=== PATIENT | female | born 1935 | race Caucasian/White ===

== ENCOUNTER 2017-10-10 06:14 | Emergency (ER) | payer MEDICARE, BC ==
[2017-10-10 06:22] VITALS: BP 139/64
--- NOTE | 2017-10-10 06:46 | ERNOTE ---
Date of Service: 10/10/17 Time Seen by Provider: 10/10/17 06:40 Stated Complaint: SORE THROAT,COUGH,DIARRHEA Source: patient Exam Limitations: no limitations Immunizations: IMMUNIZATION HX Immunizations Up to Date Yes History of Influenza Vaccine Yes Hx Pneumococcal Vaccination No Allergies/Adverse Reactions: Allergies No Known Drug Allergies Allergy (Unknown, Verified 10/10/17 06:21) Home Medications: HOME MEDICATIONS ALPRAZolam [Xanax] 0.25 mg PO BID PRN 04/04/13 [Last Taken 04/04/13] Calcium Carbonate/Vitamin D3 [Calcium 600-Vit D3 200 Tablet] 1 each PO BID 04/04 [Last Taken 08/08/13] Hydrochlorothiazide [Hydrodiuril] 25 mg PO DAILY 04/04/13 [Last Taken 08/09/13 0500] Losartan Potassium [Cozaar] 100 mg PO DAILY 04/04/13 [Last Taken 08/09/13 05:00] Multivitamin [Multivitamins] 1 each PO DAILY 04/04/13 [Last Taken 08/08/13] Venlafaxine HCl 25 mg PO BID 04/04/13 [Last Taken 08/08/13] Potassium Chloride 10 meq PO DAILY 04/05/13 [Last Taken 08/09/13 0500] Dextran 70/Hypromellose [Artificial Tears Eye Drops] 1 drop OP DAILY PRN [Last Taken 08/08/13] Gluc Sibley/Chondro Sibley A/Vit C/Mn [Glucosamine Chondroitin Tab] 1 each PO QPM [Last Taken 08/08/13] Ferrous Sulfate 325 mg PO BIDWM #60 tablet 08/12/13 [Last Taken Unknown] Furosemide [Lasix] 40 mg PO DAILY 08/10/14 [Last Taken Unknown] Potassium Chloride [K-Dur] 20 meq PO DAILY 08/10/14 [Last Taken Unknown] Ciprofloxacin HCl [Cipro] 500 mg PO BID 10 Days tablet 10/26/16 [Last Taken Unknown] guaiFENesin/DEXTROMETHORPHAN [Robitussin Cough-Chest Dm Liq] 118 ml PO BID #120 liquid 10/26/16 [Last Taken Unknown] Azithromycin 250 mg PO DAILY #6 tablet 10/10/17 [Last Taken Unknown] Ondansetron [Zofran Odt] 4 mg PO Q6H PRN #20 tab 10/10/17 [Last Taken Unknown] - History of Present Ilness Narrative: This patient was recently seen at the clinic for sore throat ear aches and a cough she was diagnosed with an upper respiratory infection and placed on Cipro 500 mg twice a day. Patient has only taken 3 Cipro 500 mg. Patient states that her sore throat is better her ears still hurts a bit and she complains of a new symptom of diarrhea which she attributes to the Cipro. She states she is unable to continue the Cipro due to diarrhea. Diarrhea is loose not watery and multiple bouts. Patient also states when she takes the Cipro she feels nauseated but she has not vomited. She denies any fevers or chills. Does have a raspy cough worse when taking a deep breath. Review of Systems - Review of Systems Constitutional: Present: no symptoms reported EYE: Present: other - 6 and states that she is on antibiotic ointment for her eyes and she states that she gets occasional greenish discharge in the morning ENT: Present: ear pain Respiratory: Present: See HPI Cardiology: Present: no symptoms reported Gastrointestinal/Abdominal: Present: nausea. Absent: vomiting Genitourinary: Present: no symptoms reported, hematuria Skin: Present: no symptoms reported - Patient's Past Medical History Patient History - Medical: Anxiety, Arthritis, Depression, GERD Patient History - Cardiac/Respiratory: Hypertension, CPAP/BiPAP Home Use, Sleep Apnea Patient History - Cancer: Melanoma Patient History - Surgical Procedures: Appendectomy, Cholecystectomy, T & A Patient History - Other: None - Social History Living Situations: home Abuse History: No History of abuse Psych History: Hx of Anxiety, Hx of Depression - Immunizations Immunizations Up to Date: Yes Hx Pneumococcal Vaccination: No History of Influenza Vaccine: Yes Physical Exam - Physical Exam General Appearance: Present: wd/wn, alert, no apparent distress Head Exam: Present: normal inspection, no evidence of injury Eye Exam: Normal inspection: bilateral, PERRL: bilateral, EOMI: bilateral Ears, Nose, Throat: Present: normal ENT inspection, normal pharynx Neck: Present: normal inspection, nontender, supple Respiratory: Present: no respiratory distress, normal breath sounds, no accessory muscle use, chest nontender, other - when patient takes a deep breath she does have a cough and I do hear a very slight end expiratory wheeze at the end of each cough. She is not in any respiratory distress. Respirations are even and unlabored. Cardiovascular/Chest: Present: regular rate, rhythm, no murmur, normal peripheral pulses Gastrointestinal/Abdominal: Present: normal bowel sounds, nondistended, soft Extremity Exam: Present: normal inspection, normal range of motion Neurological Exam: Present: alert, oriented, normal mood/affect, no motor/ sensory deficits ED Progress - Vital Signs Patient's Vital Signs:: I have reviewed the patient's vital signs. Vital Signs: Vital Signs 10/10/17 06:18 Temperature 36.1 C L Pulse Rate 102 H Respiratory 20 Rate Blood Pressure 139/64 O2 Sat by Pulse 96 Oximetry - Progress/Reassessment Chief Complaint: Upper Respiratory Symptoms Plan - Plan Plan: This patient based on my examination has bronchitis. Patient also is having a medication reaction to Cipro and has had diarrhea. At this time we will stop the Cipro and start patient on Z-Josep. Her sore throat subsequently is getting better and her ear exam is completely normal. Departure Clinical Impression: Medication reaction Qualifiers: Encounter type: initial encounter Qualified Code(s): T88.7XXA - Unspecified adverse effect of drug or medicament, initial encounter Diarrhea Qualifiers: Diarrhea type: unspecified type Qualified Code(s): R19.7 - Diarrhea, unspecified - Departure Disposition: Home self-care Condition: Good Instructions: Diarrhea, Adult, [id number] Referrals: Luciano Gilman MD [Primary Care Provider] - Prescriptions: Azithromycin 250 mg PO DAILY #6 tablet Ondansetron [Zofran Odt] 4 mg PO Q6H PRN #20 tab PRN Reason: Nausea
== END 2017-10-10 06:52 | disposition home or self-care (01) ==
LOC: ER 06:14
DX: R19.7 Diarrhea, unspecified (principal); T88.7XXA Unspecified adverse effect of drug or medicament, initial encounter; F41.9 Anxiety disorder, unspecified; F32.9 Major depressive disorder, single episode, unspecified; I10 Essential (primary) hypertension; Z85.820 Personal history of malignant melanoma of skin

== ENCOUNTER 2020-10-27 06:37 | Observation (INO) ==
--- NOTE | 2020-10-27 07:13 | ERNOTE ---
<Jl Wolf - Last Filed: 10/27/20 08:02> Back Pain ER HPI Time Seen by Provider: 10/27/20 07:05 Source: patient Exam Limitations: no limitations Immunizations: IMMUNIZATION HX Immunizations Up to Date Yes History of Influenza Vaccine Yes Hx Pneumococcal Vaccination Yes Allergies/Adverse Reactions: Allergies No Known Drug Allergies Allergy (Unknown, Verified 05/17/20 09:34) Home Medications: HOME MEDICATIONS ALPRAZolam [Xanax] 0.25 mg PO BID PRN 04/04/13 [Last Taken 04/04/13] Calcium Carbonate/Vitamin D3 [Calcium 600-Vit D3 200 Tablet] 1 ea PO BID 04/04/13 [Last Taken 08/08/13] Multivitamin [Multivitamins] 1 ea PO DAILY 04/04/13 [Last Taken 08/08/13] Dextran 70/Hypromellose [Artificial Tears Eye Drops] 1 drp OP DAILY PRN 08/08/13 [Last Taken 08/08/13] hydrochlorothiazide 25 mg tablet 25 mg PO DAILY #90 tab 08/20/20 [Last Taken Unknown] irbesartan 150 mg tablet 150 mg PO DAILY #90 tab 08/20/20 [Last Taken Unknown] venlafaxine 50 mg tablet 50 mg PO DAILY #90 tab 08/20/20 [Last Taken Unknown] potassium chloride 10 mEq tablet,extended release 20 meq PO DAILY #180 tab 10/22/20 [Last Taken Unknown] Narrative: Patient presents with sharp right-sided lower chest pain upon breathing. She denies any trauma or injury. She states it feels like it did previously when she had polymyalgia rheumatica. Timing: Reports: constant Quality/Severity: Reports: moderate, sharpness Location of pain: Reports: mid back Activities at Onset: Reports: none Recent Injury?: Reports: no Modifying Factors - (Worsens): Reports: cough/deep breaths Associated Symptoms: Denies: fever/chills, nausea/vomiting Review of Systems - Review of Systems Constitutional: Absent: recent illness, fever, chills, fatigue ENT: Present: nasal drainage - that is usual for her.. Absent: nose congestion Respiratory: Absent: shortness of breath, cough Cardiology: Present: See HPI. Absent: palpitations Gastrointestinal/Abdominal: Absent: nausea, vomiting Genitourinary: Absent: frequency, dysuria Musculoskeletal: Present: muscle pain Skin: Absent: rash Neurological: Absent: headache, dizziness/light-headedness Endocrine: Absent: excessive sweating Medical History (Last Reviewed 10/27/20 @ 07:11 by Jl Wolf DO) Low back pain (Acute) acute on chronic Neck pain (Acute) Anxiety and depression (Chronic) Medicare annual wellness visit, subsequent (Acute) Hypertension (Chronic) Hand pain (Chronic) Onset Date: ~03/2015 left 5th metacarpal Elbow pain (Chronic) Onset Date: Unknown right DJD (degenerative joint disease) of knee (Chronic) Onset Date: ~2011 2011 Right; 2012 Left Depression (Chronic) Onset Date: Unknown Arthritis (Chronic) Onset Date: ~2005 Simple laceration of face (Acute) Bronchitis (Acute) Medication reaction (Acute) Diarrhea (Acute) Pneumonia Onset Date: ~12/2009 Right shoulder pain Onset Date: Unknown Wrist injury Onset Date: ~01/21/16 Hypertension Onset Date: Unknown Mitral valve prolapse Onset Date: Unknown Obstructive sleep apnea Onset Date: Unknown Plantar warts Onset Date: ~09/20/15 Polymyalgia Onset Date: ~2007 Surgical History: Surgical History (Last Reviewed 10/27/20 @ 07:12 by Jl Wolf DO) Total knee replacement status (Chronic) AV fistula Onset Date: ~2003 Dural AV Fistula [facility] Cataract Onset Date: ~04/04/[address] Carpenter H/O colonoscopy Onset Date: ~1998 Normal H/O steroid therapy Onset Date: Unknown injection History of appendectomy Onset Date: ~1968 History of arthroplasty Onset Date: ~2011 Right knee History of hysterectomy Onset Date: ~1968 uncontrolled bleeding. Ovaries left History of knee replacement Onset Date: ~08/09/13 Left Knee; Dr. Clay History of knee replacement Onset Date: ~04/05/13 Right; Dr. 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 Brady 05/15 Family History: Family History (Last Reviewed 10/27/20 @ 07:12 by Jl Wolf DO) Father , age 79 Cancer lung, prostate Mother , age 89 Thoracic aneurysm, ruptured Social History: (Last Reviewed 10/27/20 @ 07:12 by Jl Wolf DO) Social History: adopted: No Marital status: / lives independently: Yes household members: children current occupational status: retired Highest level of school completed/degree received: high school graduate Service: No Tobacco: Smoking Status: Never smoker Alcohol: alcohol intake: current alcohol intake frequency: holiday/special occasion Substance Use: substance use type: does not use Dietary Habits: caffeine: Yes Type: coffee Physical Exam - Physical Exam General Appearance: Present: wd/wn, alert, no apparent distress Head Exam: Present: normal inspection, no evidence of injury Neck: Present: normal inspection, nontender Respiratory: Present: no respiratory distress, no accessory muscle use, chest nontender Back Exam: Present: normal inspection, normal range of motion, no CVA tenderness, no vertebral tenderness Extremity Exam: Present: normal inspection, normal range of motion, no edema Neurological Exam: Present: alert, oriented, normal mood/affect, no motor/sensory deficits Skin Exam: Present: normal color, warm/dry Lymphatic Exam: Present: no adenopathy Progress - Results and Orders Patient's Lab Results:: I have reviewed the patient's lab results. Results and Orders: Laboratory Tests 10/27/20 10/27/20 07:21 07:21 WBC 10.0 Hgb 9.4 L Hct 31.2 L Plt Count 225 C-Reactive Prot, Quant 10.1 H - Vital Signs Patient's Vital Signs:: I have reviewed the patient's vital signs. Vital Signs: Vital Signs 10/27/20 06:57 Temperature 36.6 C Pulse Rate 79 Respiratory Rate 15 Blood Pressure 165/80 H O2 Sat by Pulse Oximetry 93 - X-Ray X-Ray #1 X-Ray: chest Interpretation: Interp. by me X-ray Comments: Right pleural effusion. No infiltrate no pneumothorax. - Progress/Reassessment Chief Complaint: Back Pain Progress Note-Subjective: 10/27/20 08:08 review of CXR shows a significant right pleural effusion. Will order, Ti, BNP and D-dimer and hand the case over to Dr. Farrell. - Transfer of Care Physician Sign Out: Jl Wolf Receiving Physician: Yvon Farrell Pending Results: Labs Expected Disposition: Discharge Departure Clinical Impression: Pleural effusion, Pulmonary embolism and infarction - Departure Disposition: Still a patient Condition: Stable Referrals: Libarnes,Roseller, MD [Primary Care Provider] - <Yvon Farrell - Last Filed: 10/27/20 11:07> Back Pain ER HPI Date of Service: 10/27/20 Immunizations: IMMUNIZATION HX Immunizations Up to Date Yes History of Influenza Vaccine Yes Hx Pneumococcal Vaccination Yes Narrative: Patient was checked out to me at shift change. She said that she began having some right lower back pain yesterday about 4 AM. The pain has gotten worse. The pain is worse with a deep breath. She is not short of breath. She has not had a fever. She denies injury. She took Tylenol at 3:00 this morning with minimal relief. The pain is sharp. She denies any GI symptoms. Medical History (Last Reviewed 10/27/20 @ 07:11 by Jl Wolf DO) Low back pain (Acute) acute on chronic Neck pain (Acute) Anxiety and depression (Chronic) Medicare annual wellness visit, subsequent (Acute) Hypertension (Chronic) Hand pain (Chronic) Onset Date: ~03/2015 left 5th metacarpal Elbow pain (Chronic) Onset Date: Unknown right DJD (degenerative joint disease) of knee (Chronic) Onset Date: ~2011 2011 Right; 2012 Left Depression (Chronic) Onset Date: Unknown Arthritis (Chronic) Onset Date: ~2005 Simple laceration of face (Acute) Bronchitis (Acute) Medication reaction (Acute) Diarrhea (Acute) Pneumonia Onset Date: ~12/2009 Right shoulder pain Onset Date: Unknown Wrist injury Onset Date: ~01/21/16 Hypertension Onset Date: Unknown Mitral valve prolapse Onset Date: Unknown Obstructive sleep apnea Onset Date: Unknown Plantar warts Onset Date: ~09/20/15 Polymyalgia Onset Date: ~2007 Surgical History: Surgical History (Last Reviewed 10/27/20 @ 07:12 by Jl Wolf DO) Total knee replacement status (Chronic) AV fistula Onset Date: ~2003 Dural AV Fistula [facility] Cataract Onset Date: ~04/04/[address] Carpenter H/O colonoscopy Onset Date: ~1998 Normal H/O steroid therapy Onset Date: Unknown injection History of appendectomy Onset Date: ~1968 History of arthroplasty Onset Date: ~2011 Right knee History of hysterectomy Onset Date: ~1968 uncontrolled bleeding. Ovaries left History of knee replacement Onset Date: ~08/09/13 Left Knee; Dr. Clay History of knee replacement Onset Date: ~04/05/13 Right; Dr. 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 Brady 05/15 Family History: Family History (Last Reviewed 10/27/20 @ 07:12 by Jl Wolf DO) Father , age 79 Cancer lung, prostate Mother , age 89 Thoracic aneurysm, ruptured Social History: (Last Reviewed 10/27/20 @ 07:12 by Jl Wolf DO) Social History: adopted: No Marital status: / lives independently: Yes household members: children current occupational status: retired Highest level of school completed/degree received: high school graduate Service: No Tobacco: Smoking Status: Never smoker Alcohol: alcohol intake: current alcohol intake frequency: holiday/special occasion Substance Use: substance use type: does not use Dietary Habits: caffeine: Yes Type: coffee Physical Exam - Physical Exam Narrative: General: Awake and alert. She appears to be uncomfortable. Head: Normal appearing ENT: Normal externally Neck: Supple Heart: Regular rate and rhythm without murmur Lungs: Clear with equal breath sounds. She has pain with breathing. The pain is not reproduced with compression of the chest. Abdomen: No distention. No tenderness to palpation Neuro: Nonfocal exam. Psych: Appropriate Progress - Date and Time Seen: Date and Time: 10/27/20 11:05 I spoke with the patient about staying in the hospital. She feels that would be best. Spoke with Dr. Reynolds who agrees to admit the patient for observation. - Results and Orders Results and Orders: Laboratory Tests 10/27/20 10/27/20 10/27/20 07:21 07:21 07:21 WBC 10.0 RBC 3.35 L Hgb 9.4 L Hct 31.2 L MCV 93.1 MCH 28.1 MCHC 30.1 L RDW 14.9 H Plt Count 225 MPV 9.6 Immature Gran % (Auto) 0.30 Immature Gran # (Auto) 0.03 Neutrophils % 71.3 Lymphocytes % 18.6 L Monocytes % 8.5 Eosinophils % 0.9 Basophils % 0.4 Nucleated RBC % 0.0 Neutrophils # 7.1 H Lymphocytes # 1.86 Monocytes # 0.9 Eosinophils # 0.1 Absolute Basophils 0.0 ESR 77 H D-Dimer Sodium Plasma Sodium Potassium Chloride Carbon Dioxide Anion Gap BUN Creatinine Est GFR (Non-Af Amer) BUN/Creatinine Ratio Random Glucose Calcium Troponin I C-Reactive Prot, Quant 10.1 H B-Natriuretic Peptide 10/27/20 10/27/20 10/27/20 07:21 07:21 07:21 WBC RBC Hgb Hct MCV MCH MCHC RDW Plt Count MPV Immature Gran % (Auto) Immature Gran # (Auto) Neutrophils % Lymphocytes % Monocytes % Eosinophils % Basophils % Nucleated RBC % Neutrophils # Lymphocytes # Monocytes # Eosinophils # Absolute Basophils ESR D-Dimer 1.32 H Sodium 136 Plasma Sodium 136 Potassium 3.4 Chloride 100 Carbon Dioxide 27.0 Anion Gap 12.4 BUN 20 Creatinine 1.17 Est GFR (Non-Af Amer) 47 L D BUN/Creatinine Ratio 17.1 Random Glucose 105 Calcium 9.3 Troponin I Less than 0.017 C-Reactive Prot, Quant B-Natriuretic Peptide 277 - Vital Signs Vital Signs: Vital Signs 10/27/20 06:57 10/27/20 08:43 10/27/20 09:00 Temperature 36.6 C Pulse Rate 79 71 80 Respiratory Rate 15 14 15 Blood Pressure 165/80 H 149/68 144/59 O2 Sat by Pulse Oximetry 93 100 99 10/27/20 09:30 Temperature Pulse Rate 74 Respiratory Rate 14 Blood Pressure 126/64 O2 Sat by Pulse Oximetry 99 - CT/Ultrasound CT/Ultrasound Narrative: X-RAY REPORT ~[id number] CT/CTA Chest~ Exam Date: 10/27/2020 10:01 Ordering Physician: Yvon Farrell MD Indication: Chest pain. Elevated d-dimer. Technique: Multiple thin-section contrast-enhanced axial CT images of the chest were obtained after rapid infusion of intravenous contrast material, according to pulmonary angiography protocol. Coronal and axial maximal intensity projection (MIP) images were also submitted for interpretation. Individualized dose optimization technique was used for the performed procedure including automated exposure control, adjustment of the mA and/or kV according to patient size and/or the iterative reconstruction technique. Comparison: No prior CT scans. Findings: There is adequate opacification of the pulmonary arterial system. There is an intraluminal filling defect within a segmental branch of the anterior lateral basal segment of the right lower lobe. The segmental emboli extending into the subsegmental branches. There is a peripheral wedge-shaped area of groundglass opacity in the lung supplied by this arterial branch suggestive of subtle parenchymal infarction. Additional tiny subsegmental intraluminal filling defect seen within a peripheral branch of the anterior aspect of the right middle lobe. The aorta shows diffuse atherosclerosis but is normal caliber and course without aneurysmal dilation or evidence for dissection. Mild dependent atelectasis in the right lower lobe No additional consolidation, pleural effusion or pneumothorax. No mediastinal or hilar lymphadenopathy. The osseous structures demonstrate degenerative change of the spine and shoulders. Limited evaluation the upper abdomen demonstrates potential diffuse nodular contour to the liver with a small liver suggestive of cirrhosis. No obvious hepatic masses in the visualized parenchyma. Adrenal glands are normal. IMPRESSION: 1. ACUTE PULMONARY EMBOLISM IN A SEGMENTAL AND SUBSEGMENTAL BRANCHES INVOLVING THE ANTEROLATERAL ASPECT OF THE RIGHT LOWER LOBE. 2. ASSOCIATED PERIPHERAL WEDGE-SHAPED GROUNDGLASS OPACITY IN THE RIGHT LUNG SUPPLIED BY THIS ARTERY SUGGESTIVE OF SUBTLE PULMONARY INFARCTION. 3. ADDITIONAL SMALLER PERIPHERAL SUBSEGMENTAL PULMONARY EMBOLI IN THE RIGHT MIDDLE LOBE. 4. ADDITIONAL CHRONIC FINDINGS ABOVE. THESE CRITICAL RESULTS WERE CALLED TO THE ORDERING ER PHYSICIAN DR. FARRELL ON OCTOBER 27, 2020 AT 10:35 AM. Electronically signed by Alfredo Flores D.O..
[2020-10-27 07:26] LABS: Hematocrit 31.2 % (37.0-47.0); Hemoglobin 9.4 gm/dL (12.5-16.0); Mean Cell Volume 93.1 fl (78-100); Mean Corpuscular Hemoglobin 28.1 pg (27-31); Mean Corpuscular Hgb Conc 30.1 g/dl (32-36); Mean Platelet Volume 9.6 fl (8-12.5); Neutrophil # 7.1 K/mm3 (1.3-6.0); Neutrophil % 71.3 % (42-75.0); Platelet Count 225 K/mm3 (150-450); Red Blood Count 3.35 M/mm3 (4.2-5.4); Red Cell Distribution Width 14.9 % (11.5-14.0)
[2020-10-27 08:24] LABS: Troponin I Less than 0.017 ng/mL (0.00-0.10)
[2020-10-27 08:27] LABS: BNP * 277 pg/mL (5-550)
[2020-10-27] MEDS ORDERED: KETOROLAC TROMETHAMINE 30 MG/ML VIAL IM ONE (08:33)
[2020-10-27 09:01] LABS: Anion Gap 12.4 mmol/L (6.8-13.8); BUN/Creatinine Ratio 17.1 (9.0-21.6); Calcium * 9.3 mg/dL (7.9-10.9); Estimated Creat Clear 33.6; Potassium 3.4 mmol/L (3.4-4.6)
[2020-10-27] MEDS ORDERED: NORMAL SALINE 1,000 ML IV ONE (09:08)
[2020-10-27] MEDS ORDERED: ACETAMINOPHEN 1,000 MG/100 ML BTL IV ONE (09:30)
[2020-10-27] MEDS ORDERED: ENOXAPARIN SODIUM 100 MG/ML SYRG SC SCH (11:00)
[2020-10-27] MEDS ORDERED: ALPRAZolam 0.25 MG TABLET PO PRN (17:22)
[2020-10-27] MEDS ORDERED: GLYCERIN/PROPYLENE GLYCOL 150 DROP BTL EACHEYE PRN (17:26)
[2020-10-27] MEDS ORDERED: LOSARTAN POTASSIUM 50 MG TABLET ONE (17:49)
[2020-10-27] MEDS: HYDROCHLOROTHIAZIDE 25 MG TABLET PO SCH (17:50)
[2020-10-27] MEDS: LOSARTAN POTASSIUM 50 MG TABLET PO SCH (17:51)
--- NOTE | 2020-10-27 17:58 | HP ---
Chief Complaint - Chief Complaint Date of Service: 10/27/20 Time of Service: 17:49 Chief Complaint: Back pain/Chest Pain History of Present Illness: Salome is an 85 yo female that presented to the [facility] ER with acute chest pain and mid back pain with shortness of breath. She had an elevated d-dimer, which led to a chest CTA. This showed pulmonary embolism. Vitals were overall stable and there was no evidence of hypoxia. COVID was negative. She does not have a history of VTE. She does report family members with stroke and DVT. She denies COVID infection, tobacco history, or change in activity. Medical History (Last Reviewed 10/27/20 @ 13:52 by Tea Boyd RN) Low back pain (Acute) acute on chronic Neck pain (Acute) Anxiety and depression (Chronic) Medicare annual wellness visit, subsequent (Acute) Hypertension (Chronic) Hand pain (Chronic) Onset Date: ~03/2015 left 5th metacarpal Elbow pain (Chronic) Onset Date: Unknown right DJD (degenerative joint disease) of knee (Chronic) Onset Date: ~2011 2011 Right; 2012 Left Depression (Chronic) Onset Date: Unknown Arthritis (Chronic) Onset Date: ~2005 Simple laceration of face (Acute) Bronchitis (Acute) Medication reaction (Acute) Diarrhea (Acute) Pneumonia Onset Date: ~12/2009 Right shoulder pain Onset Date: Unknown Wrist injury Onset Date: ~01/21/16 Hypertension Onset Date: Unknown Mitral valve prolapse Onset Date: Unknown Obstructive sleep apnea Onset Date: Unknown Plantar warts Onset Date: ~09/20/15 Polymyalgia Onset Date: ~2007 Surgical History: Surgical History (Last Reviewed 10/27/20 @ 13:53 by Tea Boyd RN) Total knee replacement status (Chronic) AV fistula Onset Date: ~[address] Fist[address] [facility] Cataract Onset Date: ~04/04/[address] Carpenter H/O colonoscopy Onset Date: ~1998 Normal H/O steroid therapy Onset Date: Unknown injection History of appendectomy Onset Date: ~1968 History of arthroplasty Onset Date: ~2011 Right knee History of hysterectomy Onset Date: ~1968 uncontrolled bleeding. Ovaries left History of knee replacement Onset Date: ~08/09/13 Left Knee; Dr. Clay History of knee replacement Onset Date: ~04/05/13 Right; Dr. 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 Brady 05/15 Family History: Family History (Last Reviewed 10/27/20 @ 07:12 by Jl Wolf DO) Father , age 79 Cancer lung, prostate Mother , age 89 Thoracic aneurysm, ruptured Social History: (Last Reviewed 10/27/20 @ 07:12 by Jl Wolf DO) Social History: adopted: No Marital status: / lives independently: Yes household members: children current occupational status: retired Highest level of school completed/degree received: high school graduate Service: No Tobacco: Smoking Status: Never smoker Alcohol: alcohol intake: current alcohol intake frequency: holiday/special occasion Substance Use: substance use type: does not use Dietary Habits: caffeine: Yes Type: coffee Review Of Systems (GEN) - Review of Systems Generalized/Overall Review: Absent: Weakness, Chills, Fever EENTM: Present: No Symptoms Reported Respiratory: Present: Shortness of Breath. Absent: Cough Cardiac: Present: Chest Pain, Edema. Absent: Palpitations, Syncope Abdominal: Absent: Nausea, Vomiting Genitourinary: Absent: Burning, Frequency Musculoskeletal: Present: Back Pain. Absent: Joint Pain Neurological: Present: No Symptoms Reported Skin: Present: No Symptoms Reported Immunizations: IMMUNIZATION HX Immunizations Up to Date Yes History of Influenza Vaccine Yes Hx Pneumococcal Vaccination Yes Allergies/Adverse Reactions: Allergies Allergy/AdvReac Type Severity Reaction Status Date / Time No Known Drug Allergies Allergy Unknown Verified 05/17/20 09:34 Home Medications: HOME MEDICATIONS ALPRAZolam [Xanax] 0.25 mg PO BID PRN 04/04/13 [Last Taken 04/04/13] Calcium Carbonate/Vitamin D3 [Calcium 600-Vit D3 200 Tablet] 1 ea PO BID 04/04/13 [Last Taken 08/08/13] Multivitamin [Multivitamins] 1 ea PO DAILY 04/04/13 [Last Taken 08/08/13] Dextran 70/Hypromellose [Artificial Tears Eye Drops] 1 drp OP DAILY PRN 08/08/13 [Last Taken 08/08/13] hydrochlorothiazide 25 mg tablet 25 mg PO DAILY #90 tab 08/20/20 [Last Taken Unknown] irbesartan 150 mg tablet 150 mg PO DAILY #90 tab 08/20/20 [Last Taken Unknown] venlafaxine 50 mg tablet 50 mg PO DAILY #90 tab 08/20/20 [Last Taken Unknown] potassium chloride 10 mEq tablet,extended release 20 meq PO DAILY #180 tab 10/22/20 [Last Taken Unknown] Exam - Exam Vital Signs: Vital Signs - Last Taken Temp 36.6 C 10/27/20 13:46 Pulse 98 10/27/20 14:45 Resp 14 10/27/20 13:46 BP 163/90 H 10/27/20 13:46 Pulse Ox 98 10/27/20 13:46 Constitutional: Present: Alert, Oriented x3, Cooperative ENT Exam: Present: hearing grossly normal Eye Exam: bilateral eye: normal inspection Respiratory: Present: lungs clear, normal breath sounds, no respiratory distress Cardiovascular/Chest: Present: regular rate, rhythm, no murmur Peripheral Pulses: radial (R): 2+, radial (L): 2+ Abdomen: Present: Normal bowel sounds, soft, nontender, nondistended Extremity: Present: lower extremity edema - 2+ Skin Exam: Present: normal color, warm/dry, no cyanosis Appearance: Present: appropriate appearance, appropriate insight Eye contact: Present: cooperative, good eye contact, normal speech Thoughts: Present: normal thought pattern, no apparent hallucination Diagnostic Studies: Abnormal Lab Results 10/27/20 10/27/20 10/27/20 Range/Units 07:21 07:21 07:21 RBC 3.35 L (4.2-5.4) M/mm3 Hgb 9.4 L (12.5-16.0) gm/dL Hct 31.2 L (37.0-47.0) % MCHC 30.1 L (32-36) g/dl RDW 14.9 H (11.5-14.0) % Lymphocytes % 18.6 L (20-51) % Neutrophils # 7.1 H (1.3-6.0) K/mm3 ESR 77 H (0-15) mm/hr D-Dimer (0.19-0.49) ug/mL Est GFR (Non-Af Amer) (60-130) mL/min C-Reactive Prot, Quant 10.1 H (0.0-0.9) mg/dL 10/27/20 10/27/20 Range/Units 07: 07:21 RBC (4.2-5.4) M/mm3 Hgb (12.5-16.0) gm/dL Hct (37.0-47.0) % MCHC (32-36) g/dl RDW (11.5-14.0) % Lymphocytes % (20-51) % Neutrophils # (1.3-6.0) K/mm3 ESR (0-15) mm/hr D-Dimer 1.32 H (0.19-0.49) ug/mL Est GFR (Non-Af Amer) 47 L D (60-130) mL/min C-Reactive Prot, Quant (0.0-0.9) mg/dL Laboratory Results WBC 10.0 K/mm3 (4.0-10.5) 10/27/20 07:21 RBC 3.35 M/mm3 (4.2-5.4) L 10/27/20 07:21 Hgb 9.4 gm/dL (12.5-16.0) L 10/27/20 07:21 Hct 31.2 % (37.0-47.0) L 10/27/20 07:21 MCV 93.1 fl (78-100) 10/27/20 07:21 MCH 28.1 pg (27-31) 10/27/20 07:21 MCHC 30.1 g/dl (32-36) L 10/27/20 07:21 RDW 14.9 % (11.5-14.0) H 10/27/20 07:21 Plt Count 225 K/mm3 (150-450) 10/27/20 07:21 MPV 9.6 fl (8-12.5) 10/27/20 07:21 Immature Gran % (Auto) 0.30 % (0.001-0.429) 10/27/20 07:21 Immature Gran # (Auto) 0.03 K/mm3 (0.000-0.0310) 10/27/20 07:21 Neutrophils % 71.3 % (42-75.0) 10/27/20 07:21 Lymphocytes % 18.6 % (20-51) L 10/27/20 07:21 Monocytes % 8.5 % (0.0-9) 10/27/20 07:21 Eosinophils % 0.9 % (0.0-3.0) 10/27/20 07:21 Basophils % 0.4 % (0.0-1.0) 10/27/20 07:21 Nucleated RBC % 0.0 k/mm3 (0-1) 10/27/20 07:21 Neutrophils # 7.1 K/mm3 (1.3-6.0) H 10/27/20 07:21 Lymphocytes # 1.86 k/mm3 (1.5-3.5) 10/27/20 07:21 Monocytes # 0.9 k/mm3 (0.0-1.0) 10/27/20 07:21 Eosinophils # 0.1 k/mm3 (0.0-0.7) 10/27/20 07:21 Absolute Basophils 0.0 k/mm3 (0.0-0.1) 10/27/20 07:21 ESR 77 mm/hr (0-15) H 10/27/20 07:21 D-Dimer 1.32 ug/mL (0.19-0.49) H 10/27/20 07:21 Sodium 136 mmol/L (132-142) 10/27/20 07:21 Plasma Sodium 136 mmol/L (130-142) 10/27/20 07:21 Potassium 3.4 mmol/L (3.4-4.6) 10/27/20 07:21 Chloride 100 mmol/L (97-106) 10/27/20 07:21 Carbon Dioxide 27.0 mmol/L (24-32.6) 10/27/20 07:21 Anion Gap 12.4 mmol/L (6.8-13.8) 10/27/20 07:21 BUN 20 mg/dL (3-23) 10/27/20 07:21 Creatinine 1.17 mg/dL (0.4-1.4) 10/27/20 07:21 Est GFR (Non-Af Amer) 47 mL/min (60-130) L D 10/27/20 07:21 BUN/Creatinine Ratio 17.1 (9.0-21.6) 10/27/20 07:21 Random Glucose 105 mg/dL (70-110) 10/27/20 07:21 Calcium 9.3 mg/dL (7.9-10.9) 10/27/20 07:21 Troponin I Less than 0.017 ng/mL (0.00-0.10) 10/27/20 07:21 C-Reactive Prot, Quant 10.1 mg/dL (0.0-0.9) H 10/27/20 07:21 B-Natriuretic Peptide 277 pg/mL (5-550) 10/27/20 07:21 SARS-CoV-2 (PCR) Not detected (NotDetected) 10/27/20 11:11 Assessment/Plan - Narrative Narrative: Salome is an 85 yo female admitted to observation for pulmonary embolism. She does not have prior history of VTE. Her only risk factor for VTE appears to be family history in her brother who had a DVT once. She was given Lovenox in the ER. I discussed anticoagulation with her and we will start Eliquis 10mg PO BID x 7 days and then to 5mg PO BID x 6 months. She will be admitted to observation to monitor her respiratory status and make sure she does not require oxygen. Will continue home medications. - Assessment/Plan (1) Pulmonary embolism and infarction Problem: Acute (2) Hypertension Problem: Chronic Qualifiers: Hypertension type: essential hypertension
[2020-10-27] MEDS: traMADol HCL 50 MG TABLET PO PRN (20:22)
[2020-10-27] MEDS: APIXABAN 5 MG TABLET PO SCH (20:22)
[2020-10-27] MEDS ORDERED: ENOXAPARIN SODIUM 40 MG, ENOXAPARIN SODIUM 30 MG SC SCH ×2 (23:00)
[2020-10-28] MEDS: traMADol HCL 50 MG TABLET PO PRN (06:31)
[2020-10-28] MEDS ORDERED: MULTIVITAMINS 1 CAP CAPSULE PO SCH (09:00)
[2020-10-28] MEDS ORDERED: POTASSIUM CHLORIDE 20 MEQ TABLET.SA PO SCH (09:00)
--- NOTE | 2020-10-28 09:06 | DS ---
(1) Pulmonary embolism and infarction Problem: Acute (2) Hypertension Problem: Chronic Qualifiers: Hypertension type: essential hypertension Qualified Code(s): I10 - Essential (primary) hypertension Date of Discharge:: 10/28/20 Hospital Course: Salome is an 85 yo female admitted to observation due to pulmonary embolism with evidence of infarction. She was not hypoxic, but was admitted to observation to monitor her respiratory status. She was started on lovenox in the ER but after discussed with her it was decided to transition to Eliquis. She was given tramadol for pain control. She did well with this plan. She had no respiratory distress or failure during her hospital course. She will be discharged to home on tramadol for pain control and eliquis for the next 6 months for anticoagulation due to her pulmonary embolism. Procedures Performed: none Results and Findings: Lab Pending Results 10/27/20 07:21: WBC 10.0, RBC 3.35 L, Hgb 9.4 L, Hct 31.2 L, MCV 93.1, MCH 28.1, MCHC 30.1 L, RDW 14.9 H, Plt Count 225, MPV 9.6, Immature Gran % (Auto) 0.30, Immature Gran # (Auto) 0.03, Neutrophils % 71.3, Lymphocytes % 18.6 L, Monocytes % 8.5, Eosinophils % 0.9, Basophils % 0.4, Nucleated RBC % 0.0, Neutrophils # 7.1 H, Lymphocytes # 1.86, Monocytes # 0.9, Eosinophils # 0.1, Absolute Basophils 0.0 10/27/20 07:21: ESR 77 H 10/27/20 07:21: C-Reactive Prot, Quant 10.1 H 10/27/20 07:21: Troponin I Less than 0.017, B-Natriuretic Peptide 277 10/27/20 07:21: D-Dimer 1.32 H 10/27/20 07:21: Sodium 136, Plasma Sodium 136, Potassium 3.4, Chloride 100, Carbon Dioxide 27.0, Anion Gap 12.4, BUN 20, Creatinine 1.17, Est GFR (Non-Af Amer) 47 L D, BUN/Creatinine Ratio 17.1, Random Glucose 105, Calcium 9.3 10/27/20 11:11: SARS-CoV-2 (PCR) Not detected Discharge Location: Home Disposition: Home self-care Condition: Good Discharge Activity: Activity as tolerated Discharge Diet: General/regular food Referrals: Luciano Gilman MD [Primary Care Provider] - One Week Problem Oriented Discharge Instructions to Patient/Family: Pulmonary Embolism Prescriptions (Any new or edited meds): Apixaban [Eliquis] 10 mg PO BID #70 tab Transmission Status: Received by [place] traMADol HCL [Ultram] 50 mg PO Q6H PRN #30 tab PRN Reason: Pain Transmission Status: Received by [place] Complete Home Medications List: Complete Home Medication List: ALPRAZolam [Xanax] 0.25 mg PO BID PRN 04/04/13 Calcium Carbonate/Vitamin D3 [Calcium 600-Vit D3 200 Tablet] 1 ea PO BID 04/04/13 Multivitamin [Multivitamins] 1 ea PO DAILY 04/04/13 Dextran 70/Hypromellose [Artificial Tears Eye Drops] 1 drp OP DAILY PRN 08/08/13 hydrochlorothiazide 25 mg tablet 25 mg PO DAILY #90 tab 08/20/20 irbesartan 150 mg tablet 150 mg PO DAILY #90 tab 08/20/20 venlafaxine 50 mg tablet 50 mg PO DAILY #90 tab 08/20/20 potassium chloride 10 mEq tablet,extended release 20 meq PO DAILY #180 tab 10/22/20 Apixaban [Eliquis] 10 mg PO BID #70 tab 10/28/20 traMADol HCL [Ultram] 50 mg PO Q6H PRN #30 tab 10/28/20
[2020-10-28] MEDS: APIXABAN 5 MG TABLET PO SCH (09:29)
[2020-10-28] MEDS: LOSARTAN POTASSIUM 50 MG TABLET PO SCH (09:30)
[2020-10-28] MEDS: HYDROCHLOROTHIAZIDE 25 MG TABLET PO SCH (09:30)
[2020-10-28 11:42] VITALS: BP 145/61
== END 2020-10-28 12:00 | disposition home or self-care (01) ==
LOC: ER 06:37 → MS 06:37
PROVIDERS: ADMIT Family Medicine; ATTEND Family Medicine